=== PATIENT | female | born 1960 | race Caucasian/White ===

== ENCOUNTER 2017-01-02 07:12 | Emergency (ER) | payer MEDICARE, OTHER, MEDICAID ==
[~2017-01-02] VITALS: Ht 165.1 cm; Wt 48.9 kg
[2017-01-02 07:14] VITALS: BP 174/91
[2017-01-02] MEDS ORDERED: LORazepam 1MG TABLET ONE (08:21)
[2017-01-02] MEDS ORDERED: LORazepam 1MG TABLET PO ONE (08:30)
== END 2017-01-02 09:20 | disposition home or self-care (01) ==
LOC: ED 09:15
DX: F41.9 Anxiety disorder, unspecified (principal); I10 Essential (primary) hypertension; J45.909 Unspecified asthma, uncomplicated; Z76.0 Encounter for issue of repeat prescription
CPT/HCPCS: 93005; 99283

== ENCOUNTER 2017-01-23 09:28 | Emergency (ER) | payer MEDICARE, OTHER, MEDICAID ==
[~2017-01-23] VITALS: Ht 165.1 cm; Wt 49.2 kg
[2017-01-23] MEDS ORDERED: BP MED PO (09:44)
[2017-01-23] MEDS ORDERED: LORazepam 1MG TABLET ONE (09:56)
[2017-01-23] MEDS ORDERED: LORazepam 1MG TABLET PO ONE (10:00)
[2017-01-23 12:15] VITALS: BP 159/84
== END 2017-01-23 12:16 | disposition home or self-care (01) ==
LOC: ED 10:47
DX: F41.9 Anxiety disorder, unspecified (principal); I10 Essential (primary) hypertension; J45.909 Unspecified asthma, uncomplicated; Z88.5 Allergy status to narcotic agent; Z88.6 Allergy status to analgesic agent; Z88.8 Allergy status to other drugs, medicaments and biological substances
CPT/HCPCS: 36415; 80047; 99284